=== PATIENT | female | born 1980 | race African-American/Black ===

== ENCOUNTER 2016-09-22 13:38 | Inpatient (IN) | payer MEDICARE ==
[~2016-09-22] VITALS: Ht 162.6 cm; Wt 109.0 kg
[2016-09-22] MEDS: NICOTINE 21 MG/24 HR TRANSDERM SCH (09:00)
[2016-09-22 16:53] VITALS: BMI 41.2
[2016-09-22 16:55] VITALS: BP_SYST 144; RESP 16; TEMP 99.2
[2016-09-22] MEDS ORDERED: PATIENT OWN MEDICATION PO SCH (18:15)
[2016-09-22] MEDS: TIVICAY 50 MG PO SCH (19:07)
[2016-09-22] MEDS ORDERED: DIPHENHYDRAMINE 50 MG CAP PO PRN (19:20)
[2016-09-22] MEDS ORDERED: DIPHENHYDRAMINE 50 MG/ML VIAL IM PRN (19:20)
[2016-09-22] MEDS ORDERED: ALU/MAG/SIM 30 ML UDC PO PRN (19:20)
[2016-09-22] MEDS ORDERED: LORAZEPAM 2 MG TAB PO PRN (19:20)
[2016-09-22] MEDS ORDERED: HALOPERIDOL 5 MG TAB PO PRN (19:20)
[2016-09-22] MEDS ORDERED: LORAZEPAM 2 MG/ML VIAL IM PRN (19:20)
[2016-09-22] MEDS ORDERED: HALOPERIDOL 5 MG/ML VIAL IM PRN (19:20)
[2016-09-22] MEDS ORDERED: MAG HYDROX 30 ML UDC PO PRN (19:20)
[2016-09-22 19:21] VITALS: BP_SYST 141; RESP 20; TEMP 98.4
[2016-09-22] MEDS: *HOME MEDS KEPT IN PHARMACY XX SCH (20:00)
[2016-09-22] MEDS: *HOME MEDS IN MED CART XX SCH (20:00)
[2016-09-22] MEDS: TRAZODONE 50 MG TAB PO PRN (23:16)
[2016-09-23] MEDS: TIVICAY 50 MG PO SCH (08:45)
[2016-09-23] MEDS: MULTIVITS/MINERALS (THERAGRAN M) TAB PO SCH (08:45)
[2016-09-23] MEDS: *HOME MEDS IN MED CART XX SCH ×2 (08:45→20:00)
[2016-09-23] MEDS: *HOME MEDS KEPT IN PHARMACY XX SCH ×2 (08:45→20:00)
[2016-09-23] MEDS: FLUOXETINE 20 MG CAP PO SCH (10:51)
[2016-09-23] MEDS: ARIPiprazole 5 MG TABLET PO SCH (10:51)
[2016-09-23] MEDS: LEVOTHYROXINE 0.1 MG TAB PO SCH (11:30)
[2016-09-23 12:25] VITALS: BP_SYST 108; RESP 20; TEMP 97.6
[2016-09-23] MEDS: NICOTINE 21 MG/24 HR TRANSDERM SCH (12:51)
[2016-09-23] MEDS: ACETAMINOPHEN 325 MG TAB PO PRN (12:51)
[2016-09-23 19:00] VITALS: BP_SYST 111; RESP 18; TEMP 97.8
[2016-09-23] MEDS: TRAZODONE 50 MG TAB PO PRN (20:45)
[2016-09-24] MEDS: LEVOTHYROXINE 0.1 MG TAB PO SCH (06:22)
[2016-09-24] MEDS: *HOME MEDS KEPT IN PHARMACY XX SCH ×2 (08:00→20:28)
[2016-09-24] MEDS: *HOME MEDS IN MED CART XX SCH ×2 (08:00→20:28)
[2016-09-24] MEDS: ARIPiprazole 5 MG TABLET PO SCH (09:00)
[2016-09-24] MEDS: NICOTINE 21 MG/24 HR TRANSDERM SCH (09:00)
[2016-09-24] MEDS: MULTIVITS/MINERALS (THERAGRAN M) TAB PO SCH (09:00)
[2016-09-24] MEDS: FLUOXETINE 20 MG CAP PO SCH (09:00)
[2016-09-24] MEDS: TIVICAY 50 MG PO SCH (09:00)
[2016-09-24 09:11] VITALS: BP_SYST 120; RESP 19
[2016-09-24 10:31] VITALS: BP_SYST 120; RESP 19; TEMP 97.8
[2016-09-24] MEDS: ACETAMINOPHEN 325 MG TAB PO PRN (17:56)
[2016-09-24 19:29] VITALS: BP_SYST 115; RESP 16; TEMP 97.7
[2016-09-24] MEDS: GABAPENTIN 600 MG TAB PO SCH (21:58)
[2016-09-24] MEDS: TRAZODONE 50 MG TAB PO PRN (21:59)
[2016-09-25] MEDS: LEVOTHYROXINE 0.1 MG TAB PO SCH (06:19)
[2016-09-25] MEDS: *HOME MEDS KEPT IN PHARMACY XX SCH (08:00)
[2016-09-25] MEDS: *HOME MEDS IN MED CART XX SCH (08:00)
[2016-09-25] MEDS: TIVICAY 50 MG PO SCH (09:26)
[2016-09-25] MEDS: FLUOXETINE 20 MG CAP PO SCH (09:26)
[2016-09-25] MEDS: MULTIVITS/MINERALS (THERAGRAN M) TAB PO SCH (09:26)
[2016-09-25] MEDS: GABAPENTIN 600 MG TAB PO SCH (09:26)
[2016-09-25] MEDS: ARIPiprazole 5 MG TABLET PO SCH (09:26)
[2016-09-25] MEDS: NICOTINE 21 MG/24 HR TRANSDERM SCH (09:40)
[2016-09-25 09:49] VITALS: BP_SYST 112; RESP 20
[2016-09-25 12:51] VITALS: BP_SYST 112; RESP 20; TEMP 97.7
[2016-09-25 13:29] VITALS: BP_SYST 112; RESP 20; TEMP 97.7
== END 2016-09-25 14:31 | disposition home or self-care (01) | DRG 977 ==
LOC: ENRESERVDT → ENRESERVTM → ER 13:38 → EMR 15:39 → PSY 16:35
PROVIDERS: ADMIT Psychiatry & Neurology Psychiatry; ATTEND Psychiatry & Neurology Psychiatry
CPT/HCPCS: 36415; 80053; 81003; 84439; 84443; 85025; 85610